=== PATIENT | female | born 1945 | race Caucasian/White ===

== ENCOUNTER 2017-08-19 14:04 | Emergency (ER) | payer MEDICAID ==
[~2017-08-19] VITALS: Ht 167.6 cm; Wt 72.0 kg
[2017-08-19 14:24] VITALS: BP 187/81; PULSE 98; RESP 17; TEMP 97.6; O2SAT 100
[2017-08-19] MEDS ORDERED: hydrOXYzine PAMOATE 25 MG CAP PO ONE (14:45)
[2017-08-19] MEDS ORDERED: ONDANSETRON ODT 4 MG TAB PO ONE (14:45)
--- NOTE | 2017-08-19 14:49 | PD ---
HPI Chief Complaint: Anxiety Time Seen by Provider: 14:37 (Mauri Brownlee) Time Seen by Provider: 14:37 (Manju Goff DO) Travel History International Travel<30 days: No Contact w/Intl Traveler<30days: No Traveled to known affect area: No (Mauri Brownlee) History of Present Illness HPI 72-year-old female presents emergency department with history of hypertension, anxiety, and "feeling like she is going to pass out". Patient states that she has an appointment tomorrow with her primary care physician, for follow-up for recent hospitalization in [facility] for her high blood pressure. Patient is currently on amlodipine 5 mg daily. She was concerned as her blood pressure was 181/100 earlier today. Patient also states that she was given some anxiety medications while she was in the hospital, that she cannot recover the name of, but does not seem to be helping. She states she feels flushed, and gets anxious, and then she feels that she is going to pass out. She denies chest pain, headache, neuro focal deficits, or other acute findings. Patient is allergic to codeine (Mauri Brownlee) PFSH Past Medical History ?: Not (Mauri Brownlee) Social History Tobacco Use: No (Manju Goff DO) Allergies-Medications (Allergen,Severity, Reaction): Coded Allergies: codeine (Verified Allergy, Unknown, 08/19/17) Reported Meds & Prescriptions Reported Meds & Active Scripts Active Zofran (Ondansetron HCl) 4 Mg Tab 4 Mg PO Q6HR PRN Vistaril (Hydroxyzine Pamoate) 25 Mg Cap 25 Mg PO Q6H PRN (Manju Goff DO) Review of Systems Except as stated in HPI: all other systems reviewed are Neg General / Constitutional: No: Fever Eyes: No: Visual changes HENT: No: Headaches Cardiovascular: No: Chest Pain or Discomfort Respiratory: No: Shortness of Breath Gastrointestinal: No: Abdominal Pain Genitourinary: No: Dysuria Musculoskeletal: No: Pain Skin: No Rash Neurologic: No: Weakness Psychiatric: Positive: Anxiety, No: Depression Endocrine: No: Polydipsia Hematologic/Lymphatic: No: Easy Bruising (Mauri Brownlee) Physical Exam Narrative GENERAL: Patient appears anxious, otherwise in no acute distress. SKIN: Warm and dry. Normal color. Normal turgor. HEAD: Atraumatic. Normocephalic. EYES: Pupils equal and round. No scleral icterus. No injection or drainage. ENT: No nasal bleeding or discharge. Mucous membranes pink and moist. Pharynx is clear. Airways patent. NECK: Trachea midline. No JVD. Supple and nontender. No palpable thyroid. CARDIOVASCULAR: Regular rate and rhythm no murmurs appreciated. RESPIRATORY: No accessory muscle use. Clear to auscultation. Breath sounds equal bilaterally. GASTROINTESTINAL: Abdomen soft, non-tender, nondistended. Hepatic and splenic margins not palpable. MUSCULOSKELETAL: Extremities without clubbing, cyanosis, or edema. No obvious deformities. NEUROLOGICAL: Awake and alert. No obvious cranial nerve deficits. Motor grossly within normal limits. Five out of 5 muscle strength in the arms and legs. Normal speech. PSYCHIATRIC: Patient appears flustered and very anxious. (Mauri Brownlee) Data Data Orders Orders Ondansetron Odt (Zofran Odt) (08/19/17 14:45) Hydroxyzine Pamoate (Vistaril) (08/19/17 14:45) Ed Discharge Order (08/19/17 15:52) (Manju Goff DO) MDM Medical Decision Making Medical Screen Exam Complete: Yes Emergency Medical Condition: Yes Differential Diagnosis Blood pressure is noted to be 181/80, with a normal pulse. I feel the patient is mainly suffering from anxiety. I do not feel strongly about a full workup considering her blood pressure is only slightly elevated in my opinion. Patient is given Zofran 4 mg p.o. as well as 25 mg Vistaril. Patient is monitored here in the department of blood pressure is rechecked. Narrative Course Blood pressure is noted to be 181/80, with a normal pulse. I feel the patient is mainly suffering from anxiety. I do not feel strongly about a full workup considering her blood pressure is only slightly elevated in my opinion. Patient is given Zofran 4 mg p.o. as well as 25 mg Vistaril. Patient is monitored here in the department of blood pressure is rechecked. Patient is reassessed and felt to be much improved after the Zofran and Vistaril. Patient is given a prescription for Vistaril 25 mg every 6 hours as needed #30. Patient is to continue her amlodipine as previously prescribed. Patient to follow-up with her primary care physician as scheduled tomorrow. (Mauri Brownlee) Diagnosis Primary Impression: Anxiety about health Additional Impression: Hypertension Qualified Codes: I10 - Essential (primary) hypertension Referrals: Primary Care Physician Patient Instructions: 2 Gram Sodium Diet (GEN), General Instructions Additional Instructions: Patient is reassessed and felt to be much improved after the Zofran and Vistaril. Patient is given a prescription for Vistaril 25 mg every 6 hours as needed #30. Patient is to continue her amlodipine as previously prescribed. Patient to follow-up with her primary care physician as scheduled tomorrow. Med/Other Pt SpecificInfo: Prescription(s) given (Mauri Brownlee) Scripts Ondansetron (Zofran) 4 Mg Tab 4 MG PO Q6HR Y for NAUSEA OR VOMITING, #20 TAB 0 Refills Prov: Manju Goff DO 08/19/17 Hydroxyzine Pamoate (Vistaril) 25 Mg Cap 25 MG PO Q6H Y for ANXIETY, #30 CAP 0 Refills Prov: Manju Goff DO 08/19/17 Disposition: 01 DISCHARGE HOME Condition: Stable Mauri Brownlee August 19, 2017 14:49 Manju Goff DO August 25, 2017 13:05
[2017-08-19] MEDS ORDERED: VIST25CA PO (15:52)
[2017-08-19] MEDS ORDERED: ZOFR4TAB PO (15:52)
[2017-08-19 15:57] VITALS: BP 191/81; PULSE 91; RESP 18; O2SAT 97
== END 2017-08-19 16:26 | disposition home or self-care (01) ==
LOC: NEPD 14:04
DX: F41.9 Anxiety disorder, unspecified (principal); I10 Essential (primary) hypertension
CPT/HCPCS: 99283; Q0177